=== PATIENT | male | born 1990 | race American Indian/Alaskan Native ===

== ENCOUNTER 2020-09-07 09:05 | Emergency (ER) | payer OTHER ==
[2020-09-07] MEDS ORDERED: SODIUM CHLORIDE 0.9% 1000 ML 1,000 ML IV ONE ×2 (09:15→09:16)
--- NOTE | 2020-09-07 09:19 | Emergency Department Report ---
ED Alcohol HPI - General Chief Complaint: Arrhythmia/Palpitations Stated Complaint: POSSIBLY DRUGGED LAST NIGHT Time Seen by Provider: 09/07/20 09:13 Source: patient, EMS Mode of arrival: Ambulatory Limitations: No Limitations - History of Present Illness Initial Comments: CC: "I feel funny." HPI: This is a 30 yo male with hx of alcohol and cocaine use who presents with odd sensation. He "feels funny". He drank "quite a bit" of alcohol last night. He feels like he has been drugged. He has used cocaine and marijuana in the past. He has not used recreational drugs recently. He denies chest pain or shortness of breath. He is a truck packer. MD Complaint: alcohol intoxication Last Drink: unknown Chronic Alcohol Use: Yes Previous Visits for Alcohol Intoxication?: No Recent Trauma: No Associated Symptoms: other (ems transport) - Related Data Allergies Allergy/AdvReac Type Severity Reaction Status Date / Time No Known Allergies Allergy Unverified 09/07/20 09:24 ED Review of Systems ROS: Stated complaint: POSSIBLY DRUGGED LAST NIGHT Other details as noted in HPI Comment: All other systems reviewed and negative Constitutional: denies: fever, malaise Respiratory: denies: cough, shortness of breath Cardiovascular: denies: chest pain Gastrointestinal: denies: abdominal pain ED Past Medical Hx - Past Medical History Previous Medical History?: No - Surgical History Past Surgical History?: Yes - Social History Smoking Status: Current Every Day Smoker Substance Use Type: Alcohol, Cocaine, Marijuana ED Physical Exam - General Limitations: No Limitations General appearance: alert, in no apparent distress - Head Head exam: Present: atraumatic, normocephalic - Eye Eye exam: Present: normal appearance - ENT ENT exam: Present: mucous membranes moist - Neck Neck exam: Present: normal inspection, full ROM - Respiratory Respiratory exam: Present: normal lung sounds bilaterally. Absent: respiratory distress - Cardiovascular Cardiovascular Exam: Present: normal rhythm, tachycardia, normal heart sounds. Absent: systolic murmur, diastolic murmur, rubs, gallop - GI/Abdominal GI/Abdominal exam: Present: soft, normal bowel sounds. Absent: distended, tenderness, guarding, rebound - Rectal Rectal exam: Present: deferred - Extremities Exam Extremities exam: Present: normal inspection - Neurological Exam Neurological exam: Present: alert, oriented X3 - Psychiatric Psychiatric exam: Present: normal affect, normal mood - Skin Skin exam: Present: warm, dry, intact, normal color. Absent: rash ED Course Vital Signs 09/07/20 09/07/20 09/07/20 09:06 09:15 09:45 Temperature 98.1 F Pulse Rate 133 H 126 H 130 H Respiratory 15 18 28 H Rate Blood Pressure 160/95 160/95 160/95 O2 Sat by Pulse 98 98 98 Oximetry 09/07/20 09/07/20 09/07/20 10:01 10:31 11:31 Temperature Pulse Rate 124 H 117 H 110 H Respiratory 21 25 H 24 Rate Blood Pressure 150/89 150/89 139/87 O2 Sat by Pulse 98 99 99 Oximetry ED Medical Decision Making - Lab Data Result diagrams: 09/07/20 09:42 09/07/20 09:42 Laboratory Results - last 24 hr 09/07/20 09/07/20 09/07/20 09:42 09:42 09:42 WBC 11.3 H RBC 4.18 Hgb 13.4 Hct 39.8 MCV 95 H MCH 32 MCHC 34 RDW 13.2 Plt Count 228 Lymph % (Auto) 14.3 [place] % (Auto) 7.1 Eos % (Auto) 0.1 Baso % (Auto) 0.4 Lymph # (Auto) 1.6 [place] # (Auto) 0.8 Eos # (Auto) 0.0 Baso # (Auto) 0.0 Seg Neutrophils % 78.1 H Seg Neutrophils # 8.8 H Sodium 141 Potassium 3.4 L Chloride 102.7 Carbon Dioxide 20 L Anion Gap 22 BUN 8 L Creatinine 0.7 L Estimated GFR > 60 BUN/Creatinine Ratio 11 Glucose 106 H Calcium 8.3 L Urine Opiates Screen Urine Methadone Screen Ur Barbiturates Screen Ur Phencyclidine Scrn Ur Amphetamines Screen U Benzodiazepines Scrn Urine Cocaine Screen U Marijuana (THC) Screen Drugs of Abuse Note Plasma/Serum Alcohol 0.13 H 09/07/20 Unknown WBC RBC Hgb Hct MCV MCH MCHC RDW Plt Count Lymph % (Auto) [place] % (Auto) Eos % (Auto) Baso % (Auto) Lymph # (Auto) [place] # (Auto) Eos # (Auto) Baso # (Auto) Seg Neutrophils % Seg Neutrophils # Sodium Potassium Chloride Carbon Dioxide Anion Gap BUN Creatinine Estimated GFR BUN/Creatinine Ratio Glucose Calcium Urine Opiates Screen Negative Urine Methadone Screen Negative Ur Barbiturates Screen Negative Ur Phencyclidine Scrn Negative Ur Amphetamines Screen Positive U Benzodiazepines Scrn Negative Urine Cocaine Screen Positive U Marijuana (THC) Screen Negative Drugs of Abuse Note Disclamer Plasma/Serum Alcohol - Medical Decision Making 1. Alcoholic ketoacidosis, dehydration decreased bicarbonate increased anion gap. Patient also had mild hypokalemia. Treated with IV fluid therapy. Recommended Gatorade Powerade sports drinks for potassium repletion. Patient felt much better after receiving IV fluid therapy. 2. Polysubstance abuse sympathomimetic toxidrome, patient urine drug screen positive for both amphetamine and cocaine. Vital Signs - 24 hr 09/07/20 09/07/20 09/07/20 09:06 09:15 09:45 Temperature 98.1 F Pulse Rate 133 H 126 H 130 H Respiratory 15 18 28 H Rate Blood Pressure 160/95 160/95 160/95 O2 Sat by Pulse 98 98 98 Oximetry 09/07/20 09/07/20 09/07/20 10:01 10:31 11:31 Temperature Pulse Rate 124 H 117 H 110 H Respiratory 21 25 H 24 Rate Blood Pressure 150/89 150/89 139/87 O2 Sat by Pulse 98 99 99 Oximetry Critical care attestation.: If time is entered above; I have spent that time in minutes in the direct care of this critically ill patient, excluding procedure time. ED Disposition Clinical Impression: Dehydration, Alcoholic ketoacidosis Disposition: DC-01 TO HOME OR SELFCARE Is pt being admited?: No Does the pt Need Aspirin: No Condition: Stable Instructions: Dehydration, Adult, [id number] Referrals: NAHID THOMAS MD [Staff Physician] - 3-5 Days
[2020-09-07 10:03] LABS: Basophils % (Auto) 0.4 % (0.0-1.8); Eosinophils % (Auto) 0.1 % (0.0-4.3); Hematocrit 39.8 % (35.5-45.6); Hemoglobin 13.4 gm/dl (11.8-15.2); Lymphocytes # (Auto) 1.6 K/mm3 (1.2-5.4); Lymphocytes % (Auto) 14.3 % (13.4-35.0); Mean Corpuscular HGB Conc 34 % (32-34); Mean Corpuscular Volume 95 fl (84-94); Monocytes # (Auto) 0.8 K/mm3 (0.0-0.8); Monocytes % (Auto) 7.1 % (0.0-7.3); Platelet Count 228 K/mm3 (140-440); Red Blood Count 4.18 M/mm3 (3.65-5.03); Red Cell Distribution Width 13.2 % (13.2-15.2)
[2020-09-07 10:30] LABS: Blood Urea Nitrogen 8 mg/dL (9-20); Calcium 8.3 mg/dL (8.4-10.2); Hemolysis Index 2
[2020-09-07 10:56] LABS: BUN/Creatinine Ratio 11
[2020-09-07 11:03] LABS: Benzodiazepines Screen,Urine Negative; Cannabinoid Screen,Urine Negative; Methadone Screen,Urine Negative; Opiate Screen,Urine Negative
[2020-09-07 11:40] VITALS: BP 139/87
[2020-09-07 11:41] LABS: Amphetamine Screen,Urine Positive; Cocaine Screen,Urine Positive
== END 2020-09-07 12:00 | disposition home or self-care (01) ==
LOC: ED 09:05
DX: E86.0 Dehydration (principal); E87.2 Acidosis; F17.200 Nicotine dependence, unspecified, uncomplicated; F12.10 Cannabis abuse, uncomplicated; F14.10 Cocaine abuse, uncomplicated
CPT/HCPCS: 36415; 80048; 80307; 85025; 96360; 99284; J7030; 80320; G0480